=== PATIENT | female | born 1990 | race Caucasian/White ===

== ENCOUNTER → 2016-10-31 | Outpatient (CLI) | payer BC ==
[~2016-10-31] MED LIST: PREN1TAB29
[2016-10-31 11:57] LABS: URINE APPEARANCE CLEAR (CLEAR); URINE BILIRUBIN NEG (NEG); URINE COLOR YELLOW; URINE NITRITE NEG (NEG); URINE SPECIFIC GRAVITY 1.012 (1.000-1.030); UROBILINOGEN NEG (NEG)
[2016-10-31 12:00] LABS: MANUAL MICROSCOPIC REQUIRED? NO; REVIEW REQ? NO
[2016-10-31 12:08] LABS: HEMATOCRIT 34.7 % (37-47)
[2016-10-31 14:09] LABS: GTGD 50 Grams
== END | disposition home or self-care (01) ==
LOC: C.LAB1850 10:10
PROVIDERS: ATTEND Obstetrics & Gynecology
DX: Z34.93 Encounter for supervision of normal pregnancy, unspecified, third trimester (principal)

== ENCOUNTER → 2016-11-28 | Outpatient (CLI) | payer BC ==
[2016-12-01 23:32] LABS: PARVOVIRUS IgG INDEX 5.1 (<0.9); PARVOVIRUS IgM INDEX 0.1 (<0.9)
== END | disposition home or self-care (01) ==
LOC: C.LAB1850 11:13
PROVIDERS: ATTEND Obstetrics & Gynecology
DX: Z20.828 Contact with and (suspected) exposure to other viral communicable diseases (principal)

== ENCOUNTER → 2016-12-25 | Outpatient (CLI) | payer BC | END | disposition home or self-care (01) | LOC: C.LABSPEC 16:00 | PROVIDERS: ATTEND Obstetrics & Gynecology | DX: O09.03 Supervision of pregnancy with history of infertility, third trimester (principal); Z3A.00 Weeks of gestation of pregnancy not specified ==

== ENCOUNTER 2017-01-14 21:31 | Outpatient (CLI) | payer BC ==
[~2017-01-14] VITALS: Ht 170.2 cm; Wt 111.0 kg
[2017-01-14 22:57] VITALS: Ht 170.2 cm; Wt 111.0 kg
[2017-01-14] MEDS ORDERED: PREN1TAB29 (23:04)
== END 2017-01-14 22:52 | disposition home or self-care (01) ==
LOC: C.OPB 21:31 → C.LD 21:31 → C.OPB 22:52
PROVIDERS: ATTEND Obstetrics & Gynecology
DX: O62.9 Abnormality of forces of labor, unspecified (principal); Z3A.39 39 weeks gestation of pregnancy

== ENCOUNTER 2017-01-15 02:42 | Inpatient (IN) | payer BC ==
[~2017-01-15] VITALS: Ht 170.2 cm; Wt 111.4 kg
[2017-01-15 03:42] VITALS: BMI 43.2
[2017-01-15 07:06] VITALS: Ht 170.2 cm; Wt 111.4 kg
[2017-01-15] MEDS ORDERED: LACTATED RINGER'S 1000ML 1,000 ML IV SCH (07:11)
[2017-01-15] MEDS ORDERED: PENICILLIN G POTASSIUM IV 3 MU in DEXTROSE 5% 100ML 100 ML IV PRN (07:15)
[2017-01-15] MEDS ORDERED: PENICILLIN G POTASSIUM IV 6 MU in DEXTROSE 5% 250ML 250 ML IV ONE (07:30)
[2017-01-15 07:33] LABS: HEMATOCRIT 40.5 % (37-47); MEAN CELL VOLUME 95.7 fL (80-100); MEAN CORPUSCULAR HEMOGLOBIN 33.3 pg (25-34); MEAN CORPUSCULAR HGB CONC 34.8 g/dl (32-36); MEAN PLATELET VOLUME 12.7 fL (7.4-10.4); PLATELET COUNT 165 K/uL (130-400); RED BLOOD COUNT 4.23 M/uL (4.2-5.4); WHITE BLOOD COUNT 14.72 K/uL (4.8-10.8)
[2017-01-15] MEDS: CALCIUM CARBONATE 500 MG CHEWABLE PO PRN ×2 (08:49→12:01)
[2017-01-15] MEDS ORDERED: OXYTOCIN 30 UNITS/500ML NSS IV ONE (14:36)
[2017-01-15] MEDS ORDERED: OXYTOCIN 30 UNITS/500ML NSS IV PRN (15:15)
[2017-01-15] MEDS ORDERED: DIPHTHERIA/TETANUS/PERTUSSIS 0.5 ML SYR/VIAL IM. ONE (15:15)
[2017-01-15] MEDS ORDERED: ACETAMINOPHEN/CODEINE 300/30MG TAB PO PRN ×2 (15:15)
[2017-01-15] MEDS ORDERED: SUPERCREAM 0.870 % 15GM JAR EXT PRN (15:15)
[2017-01-15] MEDS ORDERED: BENZOCAINE 20% AER SPR 82.5 GM CAN EXT PRN (15:15)
[2017-01-15] MEDS ORDERED: ACETAMINOPHEN 325 MG TAB PO PRN (15:15)
[2017-01-15] MEDS ORDERED: OXYCODONE/ACETAMINOPHEN 5-325 TAB PO PRN (15:15)
[2017-01-15] MEDS ORDERED: LANOLIN OINT EXT PRN ×2 (15:15)
[2017-01-15] MEDS ORDERED: HYDROCORTISONE ACETATE 25 MG SUPP PR PRN (15:15)
--- NOTE | 2017-01-15 15:27 | DELIVERY SUMMARY ---
DATE OF OPERATION: 01/15/2017 PREOPERATIVE DIAGNOSES: 1. Intrauterine at 39 2/7 weeks. 2. Active labor. POSTOPERATIVE DIAGNOSIS: Same. PROCEDURE: 1. Amniotomy. 2. Normal spontaneous vaginal delivery. 3. First degree peroneal laceration with right labial laceration and repair. SURGEON: Dr. Lorenz. ANESTHESIA: Local infiltration of lidocaine. ESTIMATED BLOOD LOSS: 400 cc. DETAILS OF PROCEDURE: The patient presented to Labor and Delivery in early active labor. She received penicillin prophylaxis for GBS positivity. After her second dose she was found to be 6-7 cm and amniotomy was performed for clear fluid. She then progressed rapidly after that to complete complete and 0 station. She pushed very effectively to deliver a viable male over intact perineum and INEZ presentation. There was no nuchal cord. The anterior shoulder and body were then easily delivered. The nose and mouth were bulb suctioned and the infant was placed on the maternal abdomen for drying an attention. At 1 minute of life the cord was clamped and cut. Cord blood and segment were obtained. Placenta was delivered spontaneously intact with a 3-vessel cord. Cervix, sulci and rectum were examined and found to be intact. First degree perineal laceration was repaired with 3-0 Vicryl and a separation of the upper right labia was reapproximated with interrupted stitches of 4-0 Vicryl. Hemostasis was obtained with dilute Pitocin and fundal massage. Apgars were 9 and 9. Mother and baby doing well at the end of the delivery. I attest to the content of the Intraoperative Record and any orders documented therein. Any exception s are noted below.
[2017-01-15] MEDS: IBUPROFEN 600 MG TAB PO PRN ×2 (16:09→23:18)
[2017-01-15] MEDS: DOCUSATE SODIUM 100 MG CAP PO SCH (20:00)
[2017-01-15 20:15] VITALS: BP 103/70; PULSE 97; TEMP 36.2
[2017-01-15 23:10] VITALS: BP 103/69; PULSE 96; TEMP 36.8
[2017-01-15] MEDS ORDERED: CALCIUM CARBONATE 500 MG CHEWABLE PO PRN (23:45)
[2017-01-15] MEDS ORDERED: CALCIUM CARBONATE 500 MG CHEWABLE ONE (23:52)
[2017-01-16] VITALS (7 sets, daily range): BP systolic 106–125; BP diastolic 65–85; PULSE 80–100; TEMP 36.6–36.9; O2SAT 96–99
[2017-01-16] MEDS ORDERED: NURSING VERBAL MED ORDER ONE
[2017-01-16] MEDS: IBUPROFEN 600 MG TAB PO PRN ×2 (06:17→11:07)
[2017-01-16 06:25] LABS: HEMATOCRIT 33.9 % (37-47)
--- NOTE | 2017-01-16 06:53 | Progress Note ---
Subjective Jan 16, 2017. Subjective conversation w/ patient, physical exam, lab review Ambulation: ambulating normally Voiding: no voiding problems Passing Gas: Yes Diet Tolerance: Regular Diet Lochia: Small Feeding Type: Breast Feeding Pain: controlled Comment: Feeling better since last night . no cp/sob. does not feel dizzy or lightheaded like she did last night. Objective Vital Signs Date Time Temp Pulse Resp B/P (MAP) Pulse Ox O2 Delivery O2 Flow Rate FiO2 01/16/17 04:00 36.7 80 16 107/65 (79) 01/15/17 23:10 36.8 96 18 103/69 (80) 01/15/17 23:10 Room Air 01/15/17 20:15 36.2 97 18 103/70 (81) Physical Exam General Appearance: WELL-APPEARING, WD/WN, NO APPARENT DISTRESS Abdomen: non tender, soft Fundus: Firm, Non-Tender, Relation to Umbilicus (1 above u) Extremities: non-tender, normal inspection, + pedal edema (trace) Laboratory Results Last 24 Hours Test 01/15/17 07:25 01/16/17 06:00 White Blood Count 14.72 K/uL Red Blood Count 4.23 M/uL Hemoglobin 14.1 g/dL 11.2 g/dL Hematocrit 40.5 % 33.9 % Mean Corpuscular Volume 95.7 fL Mean Corpuscular Hemoglobin 33.3 pg Mean Corpuscular Hemoglobin Concent 34.8 g/dl RDW Standard Deviation 43.9 fL RDW Coefficient of Variation 12.7 % Platelet Count 165 K/uL Mean Platelet Volume 12.7 fL Assessment and Plan Post- Day#: 1 Continue Routine Care: Doing well. Routine care. See how she does when she is up and ambulating today.
[2017-01-16] MEDS: PRENATAL VITAMIN TAB PO SCH (07:34)
[2017-01-16] MEDS: DOCUSATE SODIUM 100 MG CAP PO SCH ×2 (07:34→20:19)
--- NOTE | 2017-01-16 17:54 | Medical Consult ---
Consultation Date of Consultation: Jan 16, 2017. Attending Physician: Leigh Ann Gregorio M.D. Reason for Consultation: Chest tightness and shortness of breath History of Present Illness 26 year old female 1 day post spontaneous vaginal delivery experiencing chest pressure and shortness of breath Patient started developing chest tightness yesterday shortly after delivery her baby boy. The tightness was located centrally over her chest. It developed as she was walking to the shower a few hours after delivering. She said the tightness was gradual in onset and radiated underneath her breasts bilaterally. She describes its a pressure. She said the pressure only lasts for 5 minutes and then goes away shortly after resting on her bed. She rates it as a 5/10 in severity. She did have a second episode that was similar in nature this afternoon as she was walking the halls. Both episodes were associated with diaphoresis, and the patient describes the room as being "muggy" and she felt very "light". Of note she also had some right calf cramping yesterday evening that went away after a couple hours. There was no redness, or swelling of the calf. Patient denies any numbness/tingling in her hands, nausea, vomiting, blurred vision or headaches She has been eating and drinking well. She has also been urinating regularly but has not had a bowel movement. Past Medical/Surgical History PCOS Depression- currently not on any medication Family History No family history of [place], PE, DVT or blood disorders Social History Smoking Status: Never Smoker Alcohol Use: occasionally (before she became ) Marital Status: Housing Status: lives with significant other Occupation Status: employed Allergies Coded Allergies: No Known Allergies (Unverified , 01/15/17) Home Medications vitamin Current Inpatient Medications Current Inpatient Medications Medications (Trade) Dose Ordered Sig/Francois Route Start Time Stop Time Status Last Admin Dose Admin Oxytocin (Pitocin IV) 30 units UD PRN IV 01/15/17 15:15 02/14/17 15:14 Benzocaine (Dermoplast Aero Spr) 1 appln PRN PRN EXT 01/15/17 15:15 02/14/17 15:14 Cocaine HCl (Supercream 0.870% Cr) BID PRN EXT 01/15/17 15:15 01/29/17 15:14 Hydrocortisone Acetate (Anusol Hc Supp) 25 mg BID PRN FL 01/15/17 15:15 02/14/17 15:14 Lanolin (Lanolin Oint) PRN PRN EXT 01/15/17 15:15 02/14/17 15:14 Prenat Multivit/ Office Services Assistant/Iron/Folic Ac ( Vitamin Tab) 1 tab DAILY PO 01/16/17 08:00 02/15/17 07:59 01/16/17 07:34 1 TAB Ibuprofen (Motrin Tab) 600 mg Q4H PRN PO 01/15/17 15:15 02/14/17 15:14 01/16/17 11:07 600 MG Acetaminophen (Tylenol Tab) 650 mg Q6H PRN PO 01/15/17 15:15 02/14/17 15:14 Acetaminophen/ Codeine Phosphate (Tylenol w/ Codeine #3 Tab) 1 tab Q4H PRN PO 01/15/17 15:15 02/14/17 15:14 Acetaminophen/ Codeine Phosphate (Tylenol w/ Codeine #3 Tab) 2 tab Q4H PRN PO 01/15/17 15:15 02/14/17 15:14 Docusate Sodium (coLACE CAP) 100 mg BID PO 01/15/17 20:00 02/14/17 19:59 01/16/17 07:34 100 MG Calcium Carbonate (Tums Chew Tab) 500 mg Q4H PRN PO 01/15/17 23:45 02/14/17 23:44 Review of Systems please see HPI for ROS Physical Exam Date Time Temp Pulse Resp B/P (MAP) Pulse Ox O2 Delivery O2 Flow Rate FiO2 01/16/17 16:30 100 20 120/82 (95) 98 Room Air 01/16/17 16:20 36.7 100 20 125/85 (98) 99 Room Air 01/16/17 16:20 99 Room Air 01/16/17 12:50 36.6 99 18 106/71 (83) 99 Room Air 01/16/17 09:36 96 Room Air 01/16/17 08:04 36.9 90 16 108/72 (84) 96 Room Air 01/16/17 07:30 Room Air 01/16/17 04:00 36.7 80 16 107/65 (79) 01/15/17 23:10 36.8 96 18 103/69 (80) 01/15/17 23:10 Room Air 01/15/17 20:15 36.2 97 18 103/70 (81) General Appearance: WD/WN, no apparent distress, + obese Head: normocephalic, atraumatic ENT: hearing grossly normal, pharynx normal Respiratory/Chest: chest non-tender, lungs clear, normal breath sounds, no respiratory distress, no accessory muscle use Cardiovascular: regular rate, rhythm, no gallop, no JVD, no murmur, normal peripheral pulses Abdomen/GI: normal bowel sounds, non tender, soft Extremities/Musculoskelatal: normal inspection, no calf tenderness, normal capillary refill, non-tender, + pedal edema (trace pedal oedema) Neurologic/Psych: alert, normal mood/affect, oriented x 3 Laboratory Results Last 24 Hours Test 01/16/17 06:00 Hemoglobin 11.2 g/dL Hematocrit 33.9 % Assessment & Plan 26 year old female 1 day post that started experiencing chest tightness and shortness of breath shortly after delivery, with a subsequent episode one day post delivery. Chest tightness - - EKG showed normal sinus rhythm with heart rate of 97 - Patients vitals stable with HR in the high 90's - Check CXR and Doppler US of the lower extremities - Chest CT chest to r/o PE since had another episode of chest pain while getting doppler studies. - If all negative - likely panic attack considering recent lack of sleep, history of depression, Post - Continue routine post care Reviewed: Pt Seen/Exam by Me History chest tightness post delivery. improved overnight and then had more episodes today. while at ultrasound for leg - had another episode of chest tightness associated with shortness of breath last few min Constitutional: denies: fever Gastrointestinal/Abdominal: negative: abdominal pain General Appearance: no apparent distress Respiratory: lungs clear, no respiratory distress Cardiovascular: regular rate, rhythm Gastrointestinal: normal bowel sounds, non tender, soft Neurologic/Psychiatric: alert, oriented x 3 Skin Characteristics: warm/dry Assessment/Plan I have reviewed the medical record and performed a history and physical examination of this patient today. I have discussed the case with Dr. Betts. The above note reflects my findings, conclusions, and recommendations.
--- NOTE | 2017-01-16 18:51 | DIAGNOSTIC IMAGING REPORT ---
TWO VIEW CHEST CLINICAL HISTORY: Chest tightness. FINDINGS: PA and lateral chest radiographs are obtained. No prior studies are available for comparison at the time of dictation. The cardiomediastinal silhouette is unremarkable. The lungs and pleural spaces are clear. There is no pneumothorax. The bony thorax appears intact. IMPRESSION: No active disease in the chest. Electronically signed by: Chavez Paulino M.D. 01/16/2017 6:50 PM Dictated Date/Time: 01/16/2017 6:49 PM
--- NOTE | 2017-01-16 19:00 | DIAGNOSTIC IMAGING REPORT ---
ULTRASOUND RIGHT LOWER EXTREMITY VENOUS CLINICAL HISTORY: Calf tightness. COMPARISON STUDY: No priors. TECHNIQUE: Real-time, grayscale, and color Doppler sonography of the deep veins of the right lower extremity was performed from the inguinal crease to the calf. Compression and augmentation were utilized. FINDINGS: There is no sonographic evidence of deep venous thrombosis identified in the right lower extremity. The common femoral, superficial femoral, and popliteal veins are patent and normally compressible. The greater saphenous vein and the profunda femoris vein at the junction with the common femoral vein are clear. The visualized calf veins are patent. IMPRESSION: There is no sonographic evidence of deep venous thrombosis identified in the right lower extremity. Electronically signed by: Chavez Paulino M.D. 01/16/2017 6:59 PM Dictated Date/Time: 01/16/2017 6:59 PM
[2017-01-16] MEDS ORDERED: OPTIRAY 320 IV PRN (19:15)
--- NOTE | 2017-01-16 20:11 | DIAGNOSTIC IMAGING REPORT ---
CT ANGIOGRAM OF THE CHEST CLINICAL HISTORY: Atypical chest pain. COMPARISON STUDY: Chest radiograph dated 01/16/2017. TECHNIQUE: Following the IV administration of 90 cc of Optiray 320, CT angiogram of the chest was performed from the upper abdomen to the thoracic inlet utilizing the pulmonary embolus protocol. Images are reviewed in the axial, sagittal, and coronal planes. 3-D MIPS images are created and assessed. IV contrast was administered without complication. CT DOSE: 416.50 mGy.cm FINDINGS: Thyroid: Imaged portions of the thyroid gland are normal in size and attenuation. Thoracic aorta: The thoracic aorta is normal in caliber and demonstrates standard 3-vessel arch anatomy. No dissection is seen. Pulmonary vasculature: The pulmonary trunk is normal in caliber. There are no filling defects identified in main, lobar, or segmental pulmonary branches to suggest pulmonary embolus. Heart: The heart is normal in size and configuration, and without pericardial effusion. Lungs and pleural spaces: The lungs and pleural spaces are clear. Mediastinum: There is no mediastinal lymphadenopathy. Rochelle: Clear. Axillae: There is no axillary lymphadenopathy. Upper abdomen: There is a tiny hiatal hernia. Partially visualized upper abdominal viscera is otherwise within normal limits. Skeletal structures: No lytic or blastic bony lesions are seen. IMPRESSION: 1. There is no evidence of pulmonary embolus in the main, lobar, or segmental pulmonary arteries. 2. The lungs are clear. Electronically signed by: Chavez Paulino M.D. 01/16/2017 8:09 PM Dictated Date/Time: 01/16/2017 8:06 PM
--- NOTE | 2017-01-17 07:44 | Progress Note ---
Subjective Jan 17, 2017. Subjective conversation w/ patient, physical exam Ambulation: ambulating normally Voiding: no voiding problems Passing Gas: Yes Diet Tolerance: Regular Diet Lochia: Small Feeding Type: Breast Feeding Comment: had another episode of chest pressure & SOB while up walking in the halls yesterday. was seen by hospitalist. EKG, spiral CT scan, dopplers of both legs are all normal. Review of Systems Constitutional: No fever, No chills, No sweats, No weight loss, No weakness, No fatigue, No problem reported Abdomen: No pain, No nausea, No vomiting, No diarrhea, No constipation, No GI bleeding, No problem reported Female : No see HPI, No dysuria, No urinary frequency, No hematuria, No incontinence, No abnormal vaginal bleeding, No vaginal discharge, No problem reported Objective Vital Signs Date Time Temp Pulse Resp B/P (MAP) Pulse Ox O2 Delivery O2 Flow Rate FiO2 01/16/17 23:15 Room Air 01/16/17 23:15 36.8 92 18 107/70 (82) 01/16/17 16:30 100 20 120/82 (95) 98 Room Air 01/16/17 16:20 36.7 100 20 125/85 (98) 99 Room Air 01/16/17 16:20 99 Room Air 01/16/17 12:50 36.6 99 18 106/71 (83) 99 Room Air 01/16/17 09:36 96 Room Air 01/16/17 08:04 36.9 90 16 108/72 (84) 96 Room Air Physical Exam General Appearance: WELL-APPEARING, NO APPARENT DISTRESS Abdomen: non tender, soft Fundus: Firm, Non-Tender, Relation to Umbilicus (2 below U) Extremities: no pedal edema Assessment and Plan Post- Day#: 2 Continue Routine Care: chest pressure workup is negative consultation appreciated patient reassured discharge to home follow up in 6 weeks
[2017-01-17 07:45] VITALS: BP 107/73; PULSE 90; TEMP 36.9; O2SAT 98
--- NOTE | 2017-01-17 08:06 | Discharge Instructions ---
Discharge Instructions Date of Service Jan 17, 2017. Admission Reason for Admission: LABOR Discharge Discharge Diagnosis / Problem: recovery from normal delivery Discharge Goals Goal(s): Routine recovery after delivery Medications Continue Dispensed Medications: supercream, dermaplast, tucks, lansinoh Activity Recommendations Activity Limitations: per Instructions/Follow-up section . Instructions / Follow-Up Instructions / Follow-Up ACTIVITY RECOMMENDATIONS: * Gradual return to full activity over the next 2-3 weeks. * No lifting - nothing heavier than baby over the next 2-3 weeks. * Do not engage in vigorous exercise, sexual activity or sports until cleared by your physician. * Do not drive or operate any motorized equipment until cleared by your physician. * You may shower/bathe daily. MEDICATIONS: For discomfort or pain, you may use Acetaminophen (Tylenol), Ibuprofen (Advil), or Naproxen (Aleve) following the package directions. For constipation you may use Colace following the package directions. BREAST CARE: If you are not breast feeding: * Wear a supportive bra 24 hours a day for one to two weeks. * Avoid stimulating your breasts and nipples as much as possible during the first few weeks after delivery. * When taking a shower, have the warm water hit your back, not breasts. * When your breasts feel full, apply ice packs. Usually three to four times a day helps ease the discomfort. * Take a mild pain medication (Tylenol / Motrin) when you are uncomfortable. If breast feeding: * Use breast milk to lubricate nipples. Lansinoh cream may be used for sore nipples. You do not need to remove cream prior to breast feeding. If using a different brand of cream, check the label for directions regarding removal of cream prior to nursing. * Wear a supportive bra. * If having problems with breasts or breast feeding, call a sap pp consultant or your health care provider. EPISIOTOMY CARE: After delivery, if you have an episiotomy (stitches), the following steps will ease discomfort and aid healing. * For the first 24 hours after delivery, place ice packs next to your episiotomy to help reduce swelling. * After the first 24 hour-period, sitz baths, either portable or in the tub, are suggested. A shower with a shower arm sprayed over the episiotomy may be comforting. * Cherie care should be done after each voiding and bowel movement. Squirt warm water from a plastic bottle over the perineum (region of the body between the anus and urinary opening) and pat dry. * Use Dermoplast to ease discomfort. Shake container. Media directly over the episiotomy. Place a Tucks on a clean sanitary pad next to your episiotomy. SPECIAL CARE INSTRUCTIONS: When you are discharged from the hospital, it is important for you to follow the instructions listed below: * During the first week at home, you should be able to care for yourself and your baby. In addition, the usual light household activities are encouraged. * Limit your activities to the way you feel. Do not try to clean the house or move furniture. Be sensible. * If you actively engage in sports and have done so up until the time of your delivery, you may resume these activities as soon as you feel able. This may take up to one month or even longer. Use good judgment. * Continue to take your vitamins for at least six weeks after the of your baby. * Your diet need not be limited unless you were on a special diet before your delivery. Breast-feeding mothers need around 2500 calories per day and at least 64-80 ounces of fluid per day (8 to 10 glasses). * You should eat foods from the four major food groups. Crash diets or fad diets are to be avoided. Eating lean meats, fresh fruits and vegetables, low-fat dairy products, high fiber foods and a regular exercise program, will help you get back to your pre- weight without putting your health at risk. * Constipation is sometimes a problem after delivery. Take a mild laxative as needed. If breast feeding, Milk of Magnesia is acceptable to use. You may use a suppository or Fleets enema if no episiotomy. * A daily shower or tub bath is suggested. Be sure to thoroughly and gently dry the perineum. * A bloody vaginal discharge will usually continue until around four weeks post . A small amount of bleeding may continue for as long as six weeks. Vaginal discharge changes from the bright red bleeding after delivery to pink then brownish and finally yellowish-pink before becoming white and disappearing. * Bleeding may increase with activity. Your first period may come in 4-8 weeks. If you are breast feeding, your period may be delayed even longer. * [place] (sex) can begin whenever both you and your partner feel comfortable and do not have any form of genital infection. It is recommended that you wait at least six weeks for internal and external healing to occur. If you have questions, please talk to your health care practitioner. A condom should be used to prevent infection and . * Foreplay, gentle intercourse and lubrication is very important the first several times to prevent pain. A water-based lubricant such as K-Y jelly or Astroglide may be used. * If you have RH negative blood and your baby is RH positive, you will receive RHOGAM by injection prior to discharge. The nurse will give you a card to keep with you that has the date and place that you received RHOGAM after delivery. * During your care, you had a Rubella screen done to check for the presence of rubella antibodies in your blood. If your test was negative, you will receive a Rubella vaccine prior to discharge. This vaccine may cause a fever, soreness at the injection site and flu-like symptoms. If these symptoms persist, notify your health care practitioner. is not advised for one month after a Rubella vaccine. * Verbalizes understanding of car seat law as reviewed with patient nursing. * Car Seat hand-out given and reviewed with patient by nursing. * Shaken baby information reviewed with patient by nursing. Call you doctor if: * Heavy bleeding (saturating several pads an hour) or passing clots the size of your fist. * A fever >101 degrees F (38.3 degrees C) on two occasions four hours apart and /or chills. * Unusual pain in the pelvic or vaginal areas. * "Baby Blues" lasting longer than two weeks. If you have any questions or concerns, call your health care practitioner at . FOLLOW UP VISIT: * Please call the office at to schedule a 6 week examination. It is important you keep this appointment. It is important for you to make arrangements for either yearly or twice yearly check-ups thereafter. Current Hospital Diet Patient's current hospital diet: Regular OB Diet Discharge Diet Recommended Diet: Regular OB Diet Pending Studies Studies pending at discharge: no Medical Emergencies . Who to Call and When: Medical Emergencies: If at any time you feel your situation is an emergency, please call 911 immediately. . Non-Emergent Contact Non-Emergency issues call your: [employer] Instructor . . "Provider Documentation" section prepared by Connie Mota. . VTE Core Measure Inpt VTE Proph given/why not?: Treatment not indicated
[2017-01-17] MEDS: DOCUSATE SODIUM 100 MG CAP PO SCH (08:25)
[2017-01-17] MEDS: PRENATAL VITAMIN TAB PO SCH (08:25)
[2017-01-17] MEDS: IBUPROFEN 600 MG TAB PO PRN (08:26)
--- NOTE | 2017-01-17 12:54 | Family Medicine Progress Note ---
Progress Note Date of Service Jan 17, 2017. Subjective Pt evaluation today including: conversation w/ patient, physical exam, chart review, lab review Pain: 0/10 PO Intake: WNL Voiding: no voiding problems No chest pain/ dyspnea overnight States that she is feeling much better having had been able to sleep no concerns test results discussed Constitutional: No fever ENT: No hearing loss Respiratory: No cough, No sputum, No wheezing, No shortness of breath, No dyspnea on exertion Cardiovascular: No chest pain Abdomen: No pain, No nausea, No vomiting, No diarrhea, No constipation Musculoskeletal: No joint pain, No muscle pain Female : No dysuria Neurologic: No memory loss, No weakness Psychiatric: No depression symptoms Endo: No fatigue Medications Medications Administered Medications (Trade) Dose Ordered Sig/Francois Route Start Time Stop Time Status Last Admin Dose Admin Penicillin G Potassium 6 mu/ Dextrose 262 ml @ 250 mls/hr 0730 ONCE IV 01/15/17 07:30 01/15/17 08:32 DC 01/15/17 07:45 250 MLS/HR Penicillin G Potassium 3 mu/ Dextrose 106 ml @ 100 mls/hr Q4H PRN IV 01/15/17 07:15 01/15/17 15:17 DC 01/15/17 11:39 100 MLS/HR Lactated Ringer's 1,000 ml @ 125 mls/hr Q8H IV 01/15/17 07:11 01/15/17 15:17 DC 01/15/17 07:45 125 MLS/HR Calcium Carbonate (Tums Chew Tab) 500 mg Q4 PRN PO 01/15/17 08:30 01/15/17 15:17 DC 01/15/17 12:01 500 MG Oxytocin (Pitocin IV) 30 units STK-MED ONCE IV 01/15/17 14:36 01/15/17 14:37 DC 01/15/17 15:41 30 UNITS Prenat Multivit/ [place]/Iron/Folic Ac ( Vitamin Tab) 1 tab DAILY PO 01/16/17 08:00 02/15/17 07:59 01/17/17 08:25 1 TAB Ibuprofen (Motrin Tab) 600 mg Q4H PRN PO 01/15/17 15:15 02/14/17 15:14 01/17/17 08:26 600 MG Docusate Sodium (coLACE CAP) 100 mg BID PO 01/15/17 20:00 02/14/17 19:59 01/17/17 08:25 100 MG Calcium Carbonate (Tums Chew Tab) 1,000 mg STK-MED ONCE .ROUTE 01/15/17 23:52 01/15/17 23:53 DC 01/16/17 00:00 1,000 MG Objective Vital Signs Date Time Temp Pulse Resp B/P (MAP) Pulse Ox O2 Delivery O2 Flow Rate FiO2 01/17/17 07:45 98 Room Air 01/17/17 07:45 36.9 90 16 107/73 (84) 98 Room Air 01/16/17 23:15 Room Air 01/16/17 23:15 36.8 92 18 107/70 (82) 01/16/17 16:30 100 20 120/82 (95) 98 Room Air 01/16/17 16:20 36.7 100 20 125/85 (98) 99 Room Air 01/16/17 16:20 99 Room Air Physical Exam General Appearance: no apparent distress Eyes: normal inspection ENT: normal ENT inspection Neck: supple Respiratory/Chest: normal breath sounds, no respiratory distress, no accessory muscle use Cardiovascular: regular rate, rhythm, no murmur Abdomen: normal bowel sounds, non tender, soft Extremities: non-tender, normal inspection, no pedal edema, no calf tenderness Neurologic/Psychiatric: alert, normal mood/affect, oriented x 3 Skin: normal color, warm/dry, no rash Lymphatic: no adenopathy Assessment and Plan 26 yo f that experienced acute onset dyspnea with chest pain. Differential included anxiety, pulmonary embolism and amniotic embolism . Chest pain NYD - CTA was WNL and no embolism noted _ no DVT in right LE noted - CXR was WNL - The patient most likely was suffering from anxiety, w/u was negative which is reassuring - As patient clinically stable and no recurrence will sign off of case at this point.
[2017-01-17 16:08] VITALS: BP_DIAS 73; PULSE 90; TEMP 36.9
== END 2017-01-17 16:08 | disposition home or self-care (01) | DRG 774 ==
LOC: C.OPB 02:42 → C.LD 02:43 → C.OPB 07:13 → C.OBG 20:39
PROVIDERS: ADMIT Obstetrics & Gynecology; ATTEND Obstetrics & Gynecology
PROC: 0HQ9XZZ Repair Perineum Skin, External Approach (ICD-10-PCS; principal; 2017-01-15)
PROC: 0UQMXZZ Repair Vulva, External Approach (ICD-10-PCS; principal; 2017-01-15)
PROC: 10E0XZZ Delivery of Products of Conception, External Approach (ICD-10-PCS; principal; 2017-01-15)
DX: O99.824 Streptococcus B carrier state complicating childbirth (principal); O90.89 Other complications of the puerperium, not elsewhere classified; O70.0 First degree perineal laceration during delivery; R42 Dizziness and giddiness; M79.661 Pain in right lower leg; O99.344 Other mental disorders complicating childbirth; F41.0 Panic disorder [episodic paroxysmal anxiety]; O99.214 Obesity complicating childbirth; E66.9 Obesity, unspecified; Z68.38 Body mass index [BMI] 38.0-38.9, adult; Z3A.39 39 weeks gestation of pregnancy; Z37.0 Single live birth

== ENCOUNTER → 2017-02-26 | Outpatient (CLI) | payer BC | END | disposition home or self-care (01) | LOC: C.PAPS 08:49 | PROVIDERS: ATTEND Obstetrics & Gynecology | DX: Z01.419 Encounter for gynecological examination (general) (routine) without abnormal findings (principal) ==

== ENCOUNTER → 2017-04-23 | Outpatient (CLI) | payer BC ==
[2017-04-23 09:41] LABS: PREG INTERNAL NEGATIVE QC NEG CLEAR BACKGROUND; PREG INTERNAL POSITIVE QC POS CONTROL LINE
== END | disposition home or self-care (01) ==
LOC: C.LAB 09:07
PROVIDERS: ATTEND Physician Assistant
DX: Z30.9 Encounter for contraceptive management, unspecified (principal)

== ENCOUNTER → 2017-04-23 | Outpatient (CLI) | payer BC ==
[2017-04-27 08:03] LABS: CHLAMYDIA TRACH RNA*** NOT DETECTED (NOT DETECTED); GC (NEIS GONORRHOEAE)RNA** NOT DETECTED (NOT DETECTED)
== END | disposition home or self-care (01) ==
LOC: C.LABSPEC 13:43
PROVIDERS: ATTEND Physician Assistant
DX: Z30.430 Encounter for insertion of intrauterine contraceptive device (principal)

== ENCOUNTER 2017-05-03 18:54 | Emergency (ER) | payer BC ==
[~2017-05-03] VITALS: Ht 170.2 cm; Wt 107.5 kg
[2017-05-03 18:56] VITALS: TEMP 38; Ht 170.2 cm; Wt 107.5 kg
[2017-05-03] MEDS ORDERED: KETOROLAC TROMETHAMINE 60 MG/2 ML VIAL IM STA (19:17)
[2017-05-03] MEDS ORDERED: ONDANSETRON INJ 2 MG/ML 2 ML VIAL IV STA (19:17)
[2017-05-03] MEDS ORDERED: SODIUM CHLORIDE 0.9% 1000ML 2,000 ML IV STA (19:17)
[2017-05-03 19:38] LABS: URINE APPEARANCE CLEAR (CLEAR); URINE BILIRUBIN NEG (NEG); URINE COLOR YELLOW; URINE EPITHELIAL CELL AUTO >30 /lpf (0-5); URINE NITRITE NEG (NEG); UROBILINOGEN NEG (NEG); ZZUR CULT IF INDIC CLEAN CATCH NO
[2017-05-03 19:39] LABS: MANUAL MICROSCOPIC REQUIRED? NO; REVIEW REQ? NO
[2017-05-03 19:42] LABS: BASO % 0.1 %; BASO ABS # 0.01 K/uL (0-0.2); COMPLETE YES; EOS % 1.3 %; HEMATOCRIT 39.3 % (37-47); IG% 0.3 %; LYMPH % 8.2 %; LYMPH ABS # 0.61 K/uL (1.2-3.4); MEAN CELL VOLUME 90.8 fL (80-100); MEAN CORPUSCULAR HEMOGLOBIN 32.1 pg (25-34); MEAN CORPUSCULAR HGB CONC 35.4 g/dl (32-36); MEAN PLATELET VOLUME 11.9 fL (7.4-10.4); MONO % 8.2 %; NEUT % 81.9 %; PLATELET COUNT 178 K/uL (130-400); RED BLOOD COUNT 4.33 M/uL (4.2-5.4); WHITE BLOOD COUNT 7.44 K/uL (4.8-10.8)
[2017-05-03 19:58] LABS: BUN/CREATININE RATIO 20.7 (10-20); CALCIUM 9.5 mg/dl (8.5-10.1); CREATININE 0.95 mg/dl (0.60-1.20); POTASSIUM 3.6 mmol/L (3.5-5.1)
--- NOTE | 2017-05-03 21:06 | DIAGNOSTIC IMAGING REPORT ---
PELVIC COMPLETE NON OB, TRANSVAG-FEMALE PELVIS CLINICAL HISTORY: 27 years-old Female presenting with lower pelvic pain with fever, IUD placed 2 weeks ago, no abnormal bleeding. TECHNIQUE: Real-time grayscale and color and spectral Doppler ultrasound imaging of the pelvis was performed first using a transabdominal probe and subsequently transvaginal for better characterization. COMPARISON: None. FINDINGS: Uterus: An intrauterine device is located within the endometrial canal with at the level of the uterine body, appropriately positioned. Retroverted. The uterus measures 9.2 x 4.8 x 6.8 cm. Endometrial stripe measures 12 mm in thickness. Endometrium normal-appearing. Cervix contains free fluid as does the lower uterine segment. Few hyperechogenic foci noted at the inferior aspect of the intrauterine device with hazy posterior shadowing. Right adnexa: Right ovary contains multiple prominent follicles, at least 10 seen on a single image. Right ovary measures 4.4 x 2.9 x 2.5 cm. Normal color Doppler flow and arterial and venous waveforms within the ovarian parenchyma. Left adnexa: Left ovary normal. Left ovary measures 4.0 x 2.2 x 2.9 cm. Normal color Doppler flow and arterial and venous waveforms within the ovarian parenchyma. Other: No free fluid. IMPRESSION: 1. Appropriately positioned intrauterine device in the uterine body. 2. Free fluid within the lower uterine segment and endocervical canal could be reactive to the presence of the IUD. Suggestion of few foci of gas at the inferior extent of the IUD associated with the fluid. Gas related to placement of the IUD would be expected to resolve 2 weeks post procedure, therefore, this raises concern for endometritis. Gynecologic consultation recommended. 3. Normal ovaries. Electronically signed by: Fahad Shore M.D. 05/03/2017 9:05 PM Dictated Date/Time: 05/03/2017 8:56 PM
[2017-05-03] MEDS ORDERED: PIPERACILLIN/TAZOBACTAM 4.5 GM/100ML D5W IV STA (21:10)
[2017-05-03] MEDS ORDERED: DOXYCYCLINE HYCLATE 100 MG CAP PO ONE (21:30)
[2017-05-03] MEDS ORDERED: DOXYCYCLINE HYCLATE 100 MG CAP PO STA (22:08)
--- NOTE | 2017-05-03 22:49 | GYNECOLOGICAL CONSULTATION ---
DATE OF CONSULTATION: 05/03/2017 HISTORY OF PRESENT ILLNESS: The patient is a 27-year-old -0-0-1 white female who had a ParaGard IUD inserted approximately 10 days ago. This was done at the end of her first period following the of her child in January. She does have a history of PCOS as well. She had noticed some spotting for 4 days after the IUD was placed but had no problems with having the insertion done, no unusual cramping or pelvic pain. She has a slight increase in discharge yesterday and then had sudden onset of lower pelvic pain and pressure that started today suddenly. She also developed a fever to 38 degrees centigrade, which was also confirmed here in the Emergency Room. She denies any diarrhea, vomiting, nausea, urinary symptoms. Hemoglobin in the Emergency Room was 13.9, hematocrit was 39.3, white count 7400. She had an ultrasound done which showed a normal sized uterus with an IUD in appropriate position. Uterus is retroverted lining measures 12 mm in thickness appears to be some free fluid in the cervix in the lower uterine segment. A few hyperechogenic foci also noted the exterior aspect of the IUD possibly associated with gas as a result of having an IUD placed recently. The ovaries appeared to be normal with evidence of anovulation on the left ovary. Doppler flow to both ovaries was normal. On exam, the IUD strings are noted to be coming out of the cervix. There is a clear thin watery type discharge present with no foul odor. Cervix was not friable. The IUD was removed without difficulty. Cultures for both GC chlamydia and general culture were obtained. Pelvic shows there is no cervical motion tenderness; however, there is tenderness to palpation of the fundus of the uterus which is retroverted and posterior to the cervix. There are no adnexal masses, but there is some diffuse tenderness in the lower pelvis. ASSESSMENT: A 27-year-old with recent placement of a ParaGard intrauterine device now with low fever of 38 degrees centigrade and the clear discharge but normal white count. The intrauterine device was removed as a precaution. She has piperacillin in the Emergency Room as well as a dose of doxycycline. She will continue on doxycycline b.i.d. for a total of 7 days. She is requesting another form of control as she has used the NuvaRing in the past and the prescription for NuvaRing has been sent to her pharmacy as well. She will follow up in the office in the next 7-10 days to call for any worsening of her symptoms or any unusual bleeding.
[2017-05-03 23:35] VITALS: BP 114/76; PULSE 76; O2SAT 99
--- NOTE | 2017-05-04 01:14 | EMERGENCY ROOM VISIT NOTE ---
History Report prepared by Mony: Elaina De Souza Under the Supervision of: Lizzy BaileyO. First contact with patient: 19:11 Chief Complaint: PELVIC PAIN Stated Complaint: PELVIC PAIN, DIZZINESS,FEVER History of Present Illness The patient is a 27 year old female who presents to the Emergency Room with complaints of constant pelvic pain beginning earlier today. The patient had an IUD placed 1.5 weeks ago. About 4 days after insertion she experienced some vaginal discharge that resolved after a few days. She did not have any other issues regarding insertion of the device. Today the patient woke up with pelvic pain that was worse with sitting. She noticed yellow vaginal discharge that started today too. She checked for the strings of her IUD but was unable to find them. She has had pain with urination and pain with bowel movements today. She notes some increased urinary urgency. The patient developed a fever throughout the day with a temperature of 102.5. 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 She rates her current pain as a 6/10 in severity. She denies cough, rhinorrhea, and sore throat. The patient had a vaginal in January of this year. She has had no issues since then. Source of History: patient Onset: today Position: pelvis Symptom Intensity: 6/10 Timing: constant Modifying Factors (Worsening): other (sitting) Modifying Factors (Relieving): tylenol Associated Symptoms: + fevers, + urinary symptoms, No sorethroat, No cough Note: Pt has some vaginal discharge. Review of Systems See HPI for pertinent positives & negatives. A total of 10 systems reviewed and were otherwise negative. Past Medical & Surgical Medical Problems: (1) labor (2) rule out PROM Family History No pertinent history stated. Social History Smoking Status: Never Smoker Marital Status: Housing Status: lives with significant other Occupation Status: employed Current/Historical Medications No Active Prescriptions or Reported Meds Allergies Coded Allergies: No Known Allergies (Unverified , 05/03/17) Physical Exam Vital Signs Date Time Temp Pulse Resp B/P (MAP) Pulse Ox O2 Delivery O2 Flow Rate FiO2 05/03/17 23:35 76 16 114/76 99 05/03/17 22:55 77 16 109/64 97 05/03/17 20:53 86 16 108/65 96 Room Air 05/03/17 18:56 38.0 117 16 118/70 95 Room Air Physical Exam GENERAL: alert, sitting up in bed, well appearing, well nourished, no distress, non-toxic EYE EXAM: normal conjunctiva OROPHARYNX: no exudate, no erythema, lips, buccal mucosa, and tongue normal and mucous membranes are moist NECK: supple, no nuchal rigidity, no adenopathy, non-tender LUNGS: Clear to auscultation. Normal chest wall mechanics HEART: no murmurs, S1 normal and S2 normal ABDOMEN: abdomen soft, tender in the suprapubic region, normo-active bowel sounds, no masses, no rebound or guarding. PELVIC: Normal external genitalia. Normal vaginal mucosa with scant white discharge. Cervical os is closed and erythematous. IUD strings in place. Significant cervical motion tenderness, no right or left adnexal tenderness. BACK: Back is symmetrical on inspection and there is no deformity, no midline tenderness, no CVA tenderness. SKIN: no rashes and no bruising UPPER EXTREMITIES: upper extremities are grossly normal. LOWER EXTREMITIES: No pitting edema. NEURO EXAM: Normal sensorium, cranial nerves II-XII grossly intact, normal speech, no gross weakness of arms, no gross weakness of legs. Medical Decision & Procedures ER Provider Diagnostic Interpretation: Radiology results as stated below per my review and the radiologist's interpretation: PELVIC COMPLETE NON OB, TRANSVAG-FEMALE PELVIS CLINICAL HISTORY: 27 years-old Female presenting with lower pelvic pain with fever, IUD placed 2 weeks ago, no abnormal bleeding. TECHNIQUE: Real-time grayscale and color and spectral Doppler ultrasound imaging of the pelvis was performed first using a transabdominal probe and subsequently transvaginal for better characterization. COMPARISON: None. FINDINGS: Uterus: An intrauterine device is located within the endometrial canal with at the level of the uterine body, appropriately positioned. Retroverted. The uterus measures 9.2 x 4.8 x 6.8 cm. Endometrial stripe measures 12 mm in thickness. Endometrium normal-appearing. Cervix contains free fluid as does the lower uterine segment. Few hyperechogenic foci noted at the inferior aspect of the intrauterine device with hazy posterior shadowing. Right adnexa: Right ovary contains multiple prominent follicles, at least 10 seen on a single image. Right ovary measures 4.4 x 2.9 x 2.5 cm. Normal color Doppler flow and arterial and venous waveforms within the ovarian parenchyma. Left adnexa: Left ovary normal. Left ovary measures 4.0 x 2.2 x 2.9 cm. Normal color Doppler flow and arterial and venous waveforms within the ovarian parenchyma. Other: No free fluid. IMPRESSION: 1. Appropriately positioned intrauterine device in the uterine body. 2. Free fluid within the lower uterine segment and endocervical canal could be reactive to the presence of the IUD. Suggestion of few foci of gas at the inferior extent of the IUD associated with the fluid. Gas related to placement of the IUD would be expected to resolve 2 weeks post procedure, therefore, this raises concern for endometritis. Gynecologic consultation recommended. 3. Normal ovaries. Electronically signed by: Fahad Shore M.D. 05/03/2017 9:05 PM Dictated Date/Time: 05/03/2017 8:56 PM PELVIC COMPLETE NON OB, TRANSVAG-FEMALE PELVIS CLINICAL HISTORY: 27 years-old Female presenting with lower pelvic pain with fever, IUD placed 2 weeks ago, no abnormal bleeding. TECHNIQUE: Real-time grayscale and color and spectral Doppler ultrasound imaging of the pelvis was performed first using a transabdominal probe and subsequently transvaginal for better characterization. COMPARISON: None. FINDINGS: Uterus: An intrauterine device is located within the endometrial canal with at the level of the uterine body, appropriately positioned. Retroverted. The uterus measures 9.2 x 4.8 x 6.8 cm. Endometrial stripe measures 12 mm in thickness. Endometrium normal-appearing. Cervix contains free fluid as does the lower uterine segment. Few hyperechogenic foci noted at the inferior aspect of the intrauterine device with hazy posterior shadowing. Right adnexa: Right ovary contains multiple prominent follicles, at least 10 seen on a single image. Right ovary measures 4.4 x 2.9 x 2.5 cm. Normal color Doppler flow and arterial and venous waveforms within the ovarian parenchyma. Left adnexa: Left ovary normal. Left ovary measures 4.0 x 2.2 x 2.9 cm. Normal color Doppler flow and arterial and venous waveforms within the ovarian parenchyma. Other: No free fluid. IMPRESSION: 1. Appropriately positioned intrauterine device in the uterine body. 2. Free fluid within the lower uterine segment and endocervical canal could be reactive to the presence of the IUD. Suggestion of few foci of gas at the inferior extent of the IUD associated with the fluid. Gas related to placement of the IUD would be expected to resolve 2 weeks post procedure, therefore, this raises concern for endometritis. Gynecologic consultation recommended. 3. Normal ovaries. Electronically signed by: Fahad Shore M.D. 05/03/2017 9:05 PM Dictated Date/Time: 05/03/2017 8:56 PM Laboratory Results 05/03/17 19:37 Red Blood Count 4.33, Mean Corpuscular Volume 90.8, Mean Corpuscular Hemoglobin 32.1, Mean Corpuscular Hemoglobin Concent 35.4, Mean Platelet Volume 11.9, Neutrophils (%) (Auto) 81.9, Lymphocytes (%) (Auto) 8.2, Monocytes (%) (Auto) 8.2, Eosinophils (%) (Auto) 1.3, Basophils (%) (Auto) 0.1, Neutrophils # (Auto) 6.09, Lymphocytes # (Auto) 0.61, Monocytes # (Auto) 0.61, Eosinophils # (Auto) 0.10, Basophils # (Auto) 0.01 05/03/17 19:37 Test 05/03/17 19:20 05/03/17 19:37 05/03/17 21:10 Urine Color YELLOW Urine Appearance CLEAR (CLEAR) Urine pH 5.0 (4.5-7.5) Urine Specific [place] 1.010 (1.000-1.030) Urine Protein NEG (NEG) Urine Glucose (UA) NEG (NEG) Urine Ketones NEG (NEG) Urine Occult Blood NEG (NEG) Urine Nitrite NEG (NEG) Urine Bilirubin NEG (NEG) Urine Urobilinogen NEG (NEG) Urine Leukocyte Esterase NEG (NEG) Urine WBC (Auto) 0 /hpf (0-5) Urine RBC (Auto) 0-4 /hpf (0-4) Urine Hyaline Casts (Auto) 0 /lpf (0-5) Urine Epithelial Cells (Auto) >30 /lpf (0-5) Urine Bacteria (Auto) NEG (NEG) Urine Test NEG (NEG) White Blood Count 7.44 K/uL (4.8-10.8) Red Blood Count 4.33 M/uL (4.2-5.4) Hemoglobin 13.9 g/dL (12.0-16.0) Hematocrit 39.3 % (37-47) Mean Corpuscular Volume 90.8 fL (80-100) Mean Corpuscular Hemoglobin 32.1 pg (25-34) Mean Corpuscular Hemoglobin Concent 35.4 g/dl (32-36) Platelet Count 178 K/uL (130-400) Mean Platelet Volume 11.9 fL (7.4-10.4) Neutrophils (%) (Auto) 81.9 % Lymphocytes (%) (Auto) 8.2 % Monocytes (%) (Auto) 8.2 % Eosinophils (%) (Auto) 1.3 % Basophils (%) (Auto) 0.1 % Neutrophils # (Auto) 6.09 K/uL (1.4-6.5) Lymphocytes # (Auto) 0.61 K/uL (1.2-3.4) Monocytes # (Auto) 0.61 K/uL (0.11-0.59) Eosinophils # (Auto) 0.10 K/uL (0-0.5) Basophils # (Auto) 0.01 K/uL (0-0.2) RDW Standard Deviation 38.8 fL (36.4-46.3) RDW Coefficient of Variation 11.6 % (11.5-14.5) Immature Granulocyte % (Auto) 0.3 % Immature Granulocyte # (Auto) 0.02 K/uL (0.00-0.02) Anion Gap 7.0 mmol/L (3-11) Est Creatinine Clear Calc Drug Dose 110.3 ml/min Estimated GFR () 93.8 Estimated GFR (Non- 80.9 BUN/Creatinine Ratio 20.7 (10-20) Lactic Acid Level 0.9 mmol/L (0.4-2.0) Calcium Level 9.5 mg/dl (8.5-10.1) Total Bilirubin 0.8 mg/dl (0.2-1) Direct Bilirubin 0.2 mg/dl (0-0.2) Aspartate Amino Transf (AST/SGOT) 19 U/L (15-37) Alanine Aminotransferase (ALT/SGPT) 26 U/L (12-78) Alkaline Phosphatase 66 U/L (45-117) Total Protein 7.4 gm/dl (6.4-8.2) Albumin 4.0 gm/dl (3.4-5.0) Lipase 141 U/L (73-393) Laboratory results per my review. Medications Administered Medications (Trade) Dose Ordered Sig/Francois Route Start Time Stop Time Status Last Admin Dose Admin Sodium Chloride 2,000 ml @ 999 mls/hr Q2H1M STAT IV 05/03/17 19:17 05/03/17 21:17 DC 05/03/17 19:36 999 MLS/HR Ondansetron HCl (Zofran Inj) 4 mg NOW STAT IV 05/03/17 19:17 05/03/17 19:19 DC 05/03/17 19:35 4 MG Ketorolac Tromethamine (Toradol Inj) 60 mg NOW STAT IM 05/03/17 19:17 05/03/17 19:19 DC 05/03/17 19:38 60 MG Piperacillin Sod/ Tazobactam Sod (Zosyn Iv) 4.5 gm NOW STAT IV 05/03/17 21:10 05/03/17 21:11 DC 05/03/17 21:29 4.5 GM Doxycycline Hyclate (Vibramycin Cap) 100 mg ONE ONCE PO 05/03/17 21:30 05/03/17 21:31 DC 05/03/17 21:29 100 MG ED Course ED COURSE: Vital signs were reviewed and showed febrile and tachycardic. The patients medical record was reviewed The above diagnostic studies were performed and reviewed. ED treatments and interventions as stated above. 1910: The patient was evaluated in room B12B. A complete history and physical examination was performed. 1916: Toradol 60 mg IM, Zofran 4 mg IV, NSS 2000 ml @ 999 mls/hr IV 2109: Zosyn 4.5 gm IV 2110: I performed a pelvic examination at this time. Please see above for my findings. 2118: I discussed the patient's case with Dr. Hernandez of ob-program or project administrator. She will come to the ED to evaluate the patient. 2124: I updated the patient on the treatment plan and she verbalized agreement. 2129: Vibramycin 100 mg PO 2307: I spoke with Dr. Hernandez again at this time. We discussed the treatment plan and she will follow-up with the patient in the office later this week. 4: Upon reevaluation, the patient is feeling better and resting comfortably. I discussed my findings with the patient and she understands and agrees with the treatment plan. Based on the patients age, coexisting illnesses, exam and lab findings the decision to treat as an outpatient was made. The patient remained stable while under my care. The patient appeared well at the time of discharge. Medical Decision Differential diagnoses includes but is not limited to appendicitis, diverticulitis, small bowel obstruction, malignancy, hernia, urinary tract infection, torsion, and ectopic (if female), perforation, trauma, infectious. Patient is a 27-year-old female The ER for lower abdominal pain. She is febrile. IUD has been in place for 1.5 weeks. Patient has had increased vaginal discharge over this time. Patient does admit to some urinary urgency. Patient is not going to this time. CBC all BMP, LFTs, bilirubin and lipase was unremarkable. Lactic acid was normal. was a. UA was negative. Pelvic ultrasound was performed and shows small amount of gas and fluid in the lower uterus. Pelvic exam was fairly unremarkable with exception of cervical motion tenderness. IUD strings were in place. Patient was given IV Zosyn and oral doxycycline. Patient was updated at bedside. Patient was evaluated by gynecology who removed IUD. Recommended discharging him have following up as an outpatient on doxycycline. She was comfortable this and well-appearing discharged follow-up as an outpatient. Discussed with Pt concerning signs and symptoms to watch out for. Pt was instructed to follow up with their PCP and discussed with the patient their option to return to the ED at anytime for persistent or worsening symptoms. The appropriate anticipatory guidance and out- patient management, including indications for return to the emergency department , were explained at length to the patient and understood. Medication Reconcilliation Current Medication List: was personally reviewed by me Blood Pressure Screening Patient's blood pressure: Normal blood pressure Consults Time Called: 2115 Consulting Physician: Dr. Hernandez Returned Call: 2118 I discussed the patient's case with Dr. Hernandez of ob-program or project administrator. She will come to the ED to evaluate the patient. Additional Consults: Time Called: 2301 Consulted Physician: Dr. Hernandez Returned Call: [phone] Additional Comments: I spoke with Dr. Hernandez again at this time. We discussed the treatment plan and she will follow-up with the patient in the office later this week. Impression Primary Impression: Endometritis Scribe Attestation The scribe's documentation has been prepared under my direction and personally reviewed by me in its entirety. I confirm that the note above accurately reflects all work, treatment, procedures, and medical decision making performed by me. Departure Information Dispostion Home / Self-Care Prescriptions No Active Prescriptions or Reported Meds Referrals Francis Trotter III, CRNP (PCP) Forms HOME CARE DOCUMENTATION FORM, IMPORTANT VISIT INFORMATION, WORK / SCHOOL INSTRUCTIONS Patient Instructions ED Endometritis Obstetric, My [facility] Additional Instructions Please follow up with your primary care doctor or if you are a student, [facility] with in the next 24 hours. Any worsening of your symptoms, please return to the ED immediately. This includes any fevers greater than 100.4, worsening pain, chest pain, shortness breath, persistent nausea, vomiting, unable to eat or drink, or any other concerning signs or symptoms from your standpoint. Please take antibiotics as prescribed. Please follow up with gynecology within 1 week.
[2017-05-05 21:51] LABS: CHLAMYDIA TRACH RNA*** NOT DETECTED (NOT DETECTED); GC (NEIS GONORRHOEAE)RNA** NOT DETECTED (NOT DETECTED)
== END 2017-05-03 23:36 | disposition home or self-care (01) ==
LOC: C.EDB 18:56
DX: N71.9 Inflammatory disease of uterus, unspecified (principal)

== ENCOUNTER → 2017-09-29 | Outpatient (CLI) | payer OTHER ==
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
--- NOTE | 2017-09-29 12:26 | DIAGNOSTIC IMAGING REPORT ---
CERVICAL SPINE W/O CT DOSE: HISTORY: Trauma. Pain. R51 [id number] Neck [id number] TECHNIQUE: Multiaxial CT images of the cervical spine were performed and reformatted in the sagittal and coronal plane without the use of contrast. A dose lowering technique was utilized adhering to the principles of ALARA. COMPARISON: None. FINDINGS: No fractures. No subluxation. Prevertebral soft tissues and the C1-C2 interval are intact. No pneumothorax. IMPRESSION: No fractures within the cervical spine. Mild muscle spasm The above report was generated using voice recognition software. It may contain grammatical, syntax or spelling errors. Electronically signed by: Izaiah Luke M.D. 09/29/2017 12:25 PM Dictated Date/Time: 09/29/2017 12:22 PM
== END | disposition home or self-care (01) ==
LOC: C.CTS 11:12
PROVIDERS: ATTEND Nurse Practitioner Adult Health
DX: R51 Headache (principal); V89.2XXA Person injured in unspecified motor-vehicle accident, traffic, initial encounter; M54.2 Cervicalgia

== ENCOUNTER → 2018-03-22 | Outpatient (CLI) | payer OTHER | END | disposition home or self-care (01) | LOC: C.PAPS 16:35 | PROVIDERS: ATTEND Obstetrics & Gynecology | DX: Z01.419 Encounter for gynecological examination (general) (routine) without abnormal findings (principal); Z87.828 Personal history of other (healed) physical injury and trauma ==